=== PATIENT | female | born 1970 | race Caucasian/White ===

== ENCOUNTER 2017-07-25 19:10 | Emergency (ER) | payer OTHER ==
[~2017-07-25] VITALS: Ht 152.4 cm; Wt 80.1 kg
[2017-07-25 19:21] VITALS: BP 80/48
--- NOTE | 2017-07-25 20:28 | NUR ---
PT BIB SELF C/O RT SIDE ARM AND RIB PAIN S/P FRONT FORWARD FALL TODAY AROUND 4PM. NO LOC. CAP REFILL-IMM, GAIT-WNL, AAOX4, PERRLA. PAIN 12/05
--- NOTE | 2017-07-25 20:28 | NUR ---
PT TAKEN TO OF2
--- NOTE | 2017-07-25 20:36 | NUR ---
Dr. Pleitez evaluating patient
--- NOTE | 2017-07-25 21:30 | NUR ---
PT TAKEN TO XRAY
--- NOTE | 2017-07-25 21:42 | NUR ---
PT RETURN FROM XRAY
[2017-07-25 21:51] VITALS: BP 92/49
--- NOTE | 2017-07-25 22:05 | NUR ---
Patient discharged with v/s stable. Written and verbal after care instructions given and explained to parent/guardian. Parent/Guardian verbalized understanding of instructions. Ambulatory with steady gait. All questions addressed prior to discharge. ID band removed. Parent/Guardian advised to follow up with PMD. Rx of NAPROSYN 500MG BID given. Parent/Guardian educated on indication of medication including possible reaction and side effects. Opportunity to ask questions provided and answered.
== END 2017-07-25 22:05 | disposition home or self-care (01) ==
LOC: MED 19:10
DX: S20.211A Contusion of right front wall of thorax, initial encounter (principal); W18.39XA Other fall on same level, initial encounter; Y93.89 Activity, other specified; Y92.89 Other specified places as the place of occurrence of the external cause; Y99.8 Other external cause status; Z90.89 Acquired absence of other organs
CPT/HCPCS: 71101; 81002; 81025; 99284

== ENCOUNTER 2023-01-10 06:07 | Emergency (ER) | payer OTHER ==
[~2023-01-10] VITALS: Ht 154.9 cm; Wt 73.5 kg
[2023-01-10 06:10] VITALS: BP 157/95
--- NOTE | 2023-01-10 06:15 | NUR ---
PT TO BED 8
--- NOTE | 2023-01-10 06:27 | NUR ---
Dr. Melgar examining patient.
--- NOTE | 2023-01-10 06:31 | NUR ---
Patient resting in bed, A/Ox4, chest rise and fall symmetrical, no s/s of distress, on monitor.
[2023-01-10] MEDS ORDERED: PROCHLORPERAZINE 10 MG/2 ML VIAL IVP ONE (06:35)
[2023-01-10] MEDS ORDERED: NACL 0.9% 1,000 ML IV ONE (06:35)
[2023-01-10] MEDS ORDERED: diphenhydrAMINE 50 MG/ML VIAL IVP ONE (06:35)
--- NOTE | 2023-01-10 07:19 | NUR ---
Change of shift report given to AM shift Nurse Tess RN. AM shift Nurse Tess RN verbalized understanding of report, no further questions.
--- NOTE | 2023-01-10 08:04 | NUR ---
assumed patient care 52 years old female presents to er with dry hives, migraine headache condition improved vss no acute changes.
[2023-01-10] MEDS ORDERED: ACET-10509 PO (08:41)
[2023-01-10] MEDS ORDERED: IBUP-2213 PO (08:41)
--- NOTE | 2023-01-10 08:50 | NUR ---
IV removed, catheter intact and site benign. Applied folded 4x4 gauze and tape to stop bleeding.
[2023-01-10 08:51] VITALS: BP 128/101
--- NOTE | 2023-01-10 08:51 | NUR ---
Patient discharged with v/s stable. Written and verbal after care instructions given and explained. Patient alert, oriented and verbalized understanding of instructions. Ambulatory with DAUGHTER to car. All questions addressed prior to discharge. ID band removed. Patient advised to follow up with PMD. Rx of given. Patient educated on indication of medication including possible reaction and side effects. Opportunity to ask questions provided and answered. RX: IBURPFOEN, TYLENOL (SENT)
== END 2023-01-10 08:51 | disposition home or self-care (01) ==
LOC: MED 06:07
DX: R51.9 Headache, unspecified (principal); R10.84 Generalized abdominal pain; Z79.899 Other long term (current) drug therapy
CPT/HCPCS: 70450; 96361; 96374; 96375; 99285; J0780; J1200; J7030

== ENCOUNTER 2023-01-13 22:55 | Emergency (ER) | payer OTHER ==
[~2023-01-13] VITALS: Ht 152.4 cm; Wt 73.5 kg
[~2023-01-13 22:55] MED LIST: ACET-10509 PO; IBUP-2213 PO
[2023-01-13 23:50] VITALS: BP 151/94
--- NOTE | 2023-01-14 00:01 | NUR ---
PT TO BED #2
--- NOTE | 2023-01-14 00:15 | NUR ---
PT REQUESTED TO HAVE LIGHTS OFF DUE TO HEADACHE.
--- NOTE | 2023-01-14 00:20 | NUR ---
PT'S DAUGHTER BEDSIDE
[2023-01-14] MEDS ORDERED: diphenhydrAMINE 50 MG/ML VIAL IVP ONE (00:35)
[2023-01-14] MEDS ORDERED: KETOROLAC 15 MG/ML VIAL IVP ONE (00:35)
[2023-01-14] MEDS ORDERED: PROCHLORPERAZINE 10 MG/2 ML VIAL IVP ONE (00:35)
[2023-01-14] MEDS ORDERED: NACL 0.9% 1,000 ML IV ONE (00:35)
[2023-01-14] MEDS ORDERED: DEXAMETHASONE 10 MG/ML VIAL IVP ONE (00:35)
--- NOTE | 2023-01-14 00:45 | NUR ---
52 Y/O F PRESENTS WITH A HEADACHE 10/10 PAIN WITH SHARP FEELING. PT STATED SHE HAD NV DENEID DIARRHEA. PT STATED "I FEEL WARM AROUND MY ABDOMEN AREA OPN THE INSIDE." PT STATED SHE TOOK TYLENOL AND MOTRIN BUT NO RELIEF. PT DAUGHTER IS BEDSIDE AND MENTIONED PT WAS SEEN HERE AT [place] FOR THE SAME REASON. PT IS A&OX4, SKIN INTACT, RESPIRATIONS EVEN AND UNLABORED. PMH-PT DENIES NKA
[2023-01-14] MEDS ORDERED: MECL-303 PO (02:35)
[2023-01-14] MEDS ORDERED: ACET-9234 PO (02:35)
[2023-01-14] MEDS ORDERED: ONDA-188 SL (02:35)
--- NOTE | 2023-01-14 02:52 | NUR ---
Patient discharged with v/s stable. Written and verbal after care instructions given and explained. Patient alert, oriented and verbalized understanding of instructions. All questions addressed prior to discharge. ID band removed. Patient advised to follow up with PMD. Rx of Fioricet, Meclizine, and Zofran sent to preferred pharmacy. Patient educated on indication of medication including possible reaction and side effects. Opportunity to ask questions provided and answered.
[2023-01-14 02:54] VITALS: BP 142/89
== END 2023-01-14 02:52 | disposition home or self-care (01) ==
LOC: MED 22:55
DX: G43.909 Migraine, unspecified, not intractable, without status migrainosus (principal); R11.2 Nausea with vomiting, unspecified; Z79.899 Other long term (current) drug therapy; Z79.1 Long term (current) use of non-steroidal anti-inflammatories (NSAID)
CPT/HCPCS: 96361; 96374; 96375; 99284; J0780; J1100; J1200; J1885; J7030

== ENCOUNTER 2023-01-17 10:19 | Emergency (ER) | payer OTHER ==
[~2023-01-17] VITALS: Ht 157.5 cm; Wt 71.7 kg
[~2023-01-17 10:19] MED LIST changes: +ACET-9234 PO; +MECL-303 PO; +ONDA-188 SL
[2023-01-17 10:40] VITALS: BP 142/81
--- NOTE | 2023-01-17 11:00 | NUR ---
Pt. ambulated to bed 3 with no difficulites, no distress. Neuro intact.
--- NOTE | 2023-01-17 11:18 | NUR ---
pt come to ER with headche, pupil both sied constrict, brisk, Perll check. O2 100%, capilary refil <3 sec, lung sound clear anterior, blood sugar high with 347. at bs
[2023-01-17] MEDS ORDERED: NACL 0.9% 1,000 ML IV ONE ×2 (11:25→12:20)
[2023-01-17] MEDS ORDERED: ONDANSETRON 4 MG/2 ML VIAL IVP ONE (11:25)
[2023-01-17] MEDS ORDERED: KETOROLAC 30 MG/ML VIAL IVP ONE (11:25)
[2023-01-17 11:51] LABS: BASOPHILS % (AUTO) 0.5 % (0.0-2.0); EOSINOPHILS % (AUTO) 0.2 % (0.0-4.0); HEMATOCRIT 42.3 % (36-48); LYMPHOCYTES # (AUTO) 1.4 K/uL (2.5-16.5); LYMPHOCYTES % (AUTO) 16.3 % (20.5-51.1); MEAN CORPUSCULAR HEMOGLOBIN 28 pg (27-31); MEAN CORPUSCULAR HGB CONC 33 g/dL (33-37); MEAN CORPUSCULAR VOLUME 85.2 fL (80-94); MONOCYTES # (AUTO) 0.4 K/uL (0.8-1.0); MONOCYTES % (AUTO) 4.5 % (1.7-9.3); NEUTROPHILS # (AUTO) 6.6 K/uL (1.8-7.7); NEUTROPHILS % (AUTO) 78.5 % (42.2-75.2); PLATELET COUNT (AUTO) 241 K/uL (140-450); RED BLOOD CELL COUNT(AUTO) 4.97 MIL/uL (4.20-5.40); RED CELL DISTRIBUTION WIDTH 13.2 % (11.6-13.7); WHITE BLOOD COUNT (AUTO) 8.4 K/uL (4.8-10.8)
[2023-01-17 12:08] LABS: ALBUMIN 3.7 g/dL (3.4-5.0); ANION GAP 11.9 (8-16); CARBON DIOXIDE 30.4 mmol/L (21-32); CREATININE 0.8 mg/dL (0.6-1.3); POTASSIUM 4.3 mmol/L (3.5-5.1); TOTAL BILIRUBIN 0.4 mg/dL (0.0-1.0)
[2023-01-17] MEDS ORDERED: ONDA-188 PO (13:02)
[2023-01-17] MEDS ORDERED: IBUP-2213 PO (13:02)
[2023-01-17 13:57] VITALS: BP 134/78
--- NOTE | 2023-01-17 13:57 | NUR ---
Patient discharged with v/s stable. Written and verbal after care instructions HEAD ACHE, DM, given and explained. Patient verbalized understanding. Ambulatory with steady gait. All questions addressed prior to discharge. Advised to follow up with PMD.
== END 2023-01-17 13:57 | disposition home or self-care (01) ==
LOC: MED 10:19
DX: R51.9 Headache, unspecified (principal); E11.65 Type 2 diabetes mellitus with hyperglycemia; E86.0 Dehydration; Z79.4 Long term (current) use of insulin; Z79.899 Other long term (current) drug therapy
CPT/HCPCS: 36415; 80053; 83735; 85025; 96361; 96374; 96375; 99284; J1885; J2405; J7030

== ENCOUNTER 2023-02-10 10:11 | Emergency (ER) | payer OTHER ==
[~2023-02-10] VITALS: Ht 149.9 cm; Wt 71.2 kg
[~2023-02-10 10:11] MED LIST changes: +ONDA-188 PO
[2023-02-10 10:39] VITALS: BP 132/70
[2023-02-10] MEDS ORDERED: KETOROLAC 60 MG/2 ML VIAL IM ONE (10:45)
[2023-02-10] MEDS ORDERED: NAPR-54 PO (10:50)
[2023-02-10] MEDS ORDERED: LEVO-481 PO (10:50)
--- NOTE | 2023-02-10 10:54 | NUR ---
PT. D/C BY DR. DENSON BEFORE PT. WAS EXAMINED BY RN. PT. GIVEN ALL INSTRUCTIONS AND PAPERWORK BY . THIS RN DID NOT SEE PT. LEAVE.
== END 2023-02-10 10:54 | disposition home or self-care (01) ==
LOC: MED 10:11
DX: J01.10 Acute frontal sinusitis, unspecified (principal); E11.9 Type 2 diabetes mellitus without complications; Z79.899 Other long term (current) drug therapy
CPT/HCPCS: 96372; 99283; J1885

== ENCOUNTER 2023-02-20 20:29 | Emergency (ER) | payer OTHER ==
[~2023-02-20] VITALS: Ht 152.4 cm; Wt 71.2 kg
[~2023-02-20 20:29] MED LIST changes: +LEVO-481 PO; +NAPR-54 PO
[2023-02-20 21:54] VITALS: BP 108/69
--- NOTE | 2023-02-20 21:57 | NUR ---
PT TO LOBBY
[2023-02-20] MEDS ORDERED: AMOX1TER15 PO (22:04)
[2023-02-20] MEDS ORDERED: NAPR-1847 PO (22:16)
[2023-02-20 22:18] VITALS: BP 108/69
== END 2023-02-20 22:18 | disposition home or self-care (01) ==
LOC: MED 20:29
DX: J32.0 Chronic maxillary sinusitis (principal); E11.9 Type 2 diabetes mellitus without complications; Z20.822 Contact with and (suspected) exposure to COVID-19; Z79.899 Other long term (current) drug therapy
CPT/HCPCS: 99283

== ENCOUNTER 2023-05-08 23:38 | Emergency (ER) | payer OTHER ==
[~2023-05-08] VITALS: Ht 152.4 cm; Wt 67.6 kg
[~2023-05-08 23:38] MED LIST changes: +AMOX1TER15 PO; +NAPR-1847 PO
[2023-05-08 23:48] VITALS: BP 114/67; PULSE 95; RESP 16; TEMP 97.7; O2SAT 98
[2023-05-09 05:46] LABS: APPEARANCE,URINE CLEAR (CLEAR); BILIRUBIN,URINE NEGATIVE (NEGATIVE); BLOOD, URINE 2+ (NEGATIVE); LEUKOCYTE ESTERASE ,URINE TRACE (NEGATIVE); NITRITE, URINE POSITIVE (NEGATIVE); PROTEIN,URINE 1+ (NEGATIVE); UGLUCOSE 3+ (NEGATIVE)
[2023-05-09 05:58] LABS: COLOR,URINE ORANGE (YELLOW)
[2023-05-09 05:59] LABS: BACTERIA,URINE 3+ /HPF (None Seen); RBC,URINE 0-5 /HPF (0-5); SQUAMOUS EPITHELIAL CELL,UR 4-10 (MOD) /LPF (0-3 (FEW)); WBC,URINE 20-60 /HPF (0-5)
[2023-05-09] MEDS ORDERED: cephALEXin 500 MG CAP PO ONE (06:10)
[2023-05-09] MEDS ORDERED: CEPH-588 PO (06:29)
[2023-05-09] MEDS ORDERED: PYR100 PO (06:29)
[2023-05-09 06:39] VITALS: BP 114/67; PULSE 82; RESP 18; TEMP 97.7; O2SAT 98
== END 2023-05-09 06:30 | disposition home or self-care (01) ==
LOC: MED 23:38
DX: N39.0 Urinary tract infection, site not specified (principal); E11.9 Type 2 diabetes mellitus without complications; Z79.899 Other long term (current) drug therapy
CPT/HCPCS: 81001; 81025; 87086; 99283